=== PATIENT | female | born 1960 | race Caucasian/White ===

== ENCOUNTER 2016-08-06 20:44 | Emergency (ER) | payer MEDICAID ==
[~2016-08-06] VITALS: Ht 170.2 cm; Wt 90.7 kg
[~2016-08-06 20:44] MED LIST: ALBU18 IN; BACL10TA PO; BECL80AE9 IN; CLON1TAB3 PO; GABA300C8 PO; INVANZ IV; MORP1TAB13 PO; SERT-274 PO; TIOTCAP; [UNRECOGNIZED DRUG - CODE] IV
[2016-08-06] MEDS ORDERED: IPRATROPIUM BROM 0.5 MG/2.5ML INH SOL NEB ONE (22:00)
[2016-08-06] MEDS ORDERED: cefTRIAXone 1GM/50ML D5W 50 ML IV ONE (22:00)
[2016-08-06] MEDS ORDERED: ALBUTEROL SULF 2.5 MG/0.5ML(0.5%) NEB SOLN NEB ONE (22:00)
[2016-08-06] MEDS ORDERED: ONDANSETRON HCL 4 MG/2 ML VIAL IV ONE (22:15)
[2016-08-06] MEDS ORDERED: SODIUM CHLORIDE 0.9% 1,000 ML IV ONE (22:15)
[2016-08-06] MEDS ORDERED: HYDROmorphone HCL 2 MG/ML VL IV ONE (22:15)
[2016-08-06 23:06] LABS: Basophils # (auto) 0 uL; Basophils % (auto) 0.5 % (0.0-2.0); DEFINITIVE VIEW TRANSMISSION; Eosinophils # (auto) 0.4 uL; Hematocrit 40.2 % (36.0-46.0); Hemoglobin 12.7 g/dL (12.2-16.2); Lymphocytes # (auto) 2.4 uL; Lymphocytes % (auto) 29.5 % (10.0-50.0); Mean Corpuscular Hemoglobin 24.5 pg (28.0-32.0); Mean Corpuscular Hgb Conc. 31.6 g/dL (32.0-36.0); Mean Corpuscular Volume 77.6 fL (80.0-100.0); Mean Platelet Volume 8.5 fL (7.4-10.4); Monocytes # (auto) 0.5 uL; Monocytes % (auto) 6.2 % (0.0-12.0); Neutrophils # (auto) 4.8 uL; Neutrophils % (auto) 58.8 % (37.0-80.0); Platelet Count (auto) 339 10^3/uL (140-450); Red Cell Distribution Width 18.6 % (11.6-16.0); White Blood Cell 8.2 10^3/uL (4.4-10.8)
[2016-08-06 23:14] LABS: INR 1.14 (0.9-1.15); Partial Thromboplastin Time 31.7 sec (22.64-33.71); Prothrombin Time 11.7 sec (9.37-12.3)
[2016-08-06 23:18] LABS: Albumin 3.6 g/dL (3.4-5.0); BUN/Creatinine Ratio 32.6; Bilirubin, Total 0.8 mg/dL (0.2-1.0); Calcium 8.8 mg/dL (8.5-10.1); Magnesium 2.1 mg/dL (1.6-2.6); Potassium 3.6 mmol/L (3.5-5.1); Total Protein 7.3 g/dL (6.4-8.2)
[2016-08-06 23:53] LABS: Urine Bilirubin Negative (Negative); Urine Ca Oxalate Crystal MANY (None Seen); Urine Color Yellow (Yellow); Urine Glucose Normal (Normal); Urine Hyaline Cast MANY /lpf (0 - 2); Urine Ketone Negative (Negative); Urine Mucus FEW (None Seen); Urine RBC 92 /hpf (0 - 4); Urine Squamous Epithelial Cell FEW /hpf (<5); Urine Triple Phosphate Crystal MANY /hpf (None Seen); Urine Urobilinogen Normal (Negative); Urine pH 8.5 (5.0-8.0)
[2016-08-06 23:56] LABS: Urine Blood 1+ /uL (Negative); Urine Nitrite POSITIVE (Negative)
[2016-08-07] MEDS ORDERED: BACLOFEN 10 MG TAB PO ONE (01:30)
[2016-08-07] MEDS ORDERED: HYDROcodone-ACET 10/325MG TAB PO ONE (02:15)
[2016-08-07 02:20] VITALS: BP 108/74
[2016-08-07] MEDS ORDERED: methylPREDNISolone SOD SUCC 125 MG/2 ML VL IV ONE (03:00)
[2016-08-07] MEDS ORDERED: methylPREDNISolone SOD SUCC 125 MG/2 ML VL ONE (03:05)
== END 2016-08-07 03:12 | disposition home or self-care (01) ==
LOC: EDBD 20:44 → ER 20:48
DX: S39.012A Strain of muscle, fascia and tendon of lower back, initial encounter (principal); J44.1 Chronic obstructive pulmonary disease with (acute) exacerbation; M54.9 Dorsalgia, unspecified; N39.0 Urinary tract infection, site not specified; I10 Essential (primary) hypertension; F17.210 Nicotine dependence, cigarettes, uncomplicated; F12.10 Cannabis abuse, uncomplicated; Z90.49 Acquired absence of other specified parts of digestive tract; Z90.89 Acquired absence of other organs
CPT/HCPCS: 36415; 71010; 80053; 81001; 83735; 84484; 85025; 85379; 85610; 85730; 93005; 94640; 94761; 96365; 96375; 99285; J0696; J1170; J2405; J2930; J7030

== ENCOUNTER 2016-08-13 13:27 | Emergency (ER) | payer MEDICAID ==
[~2016-08-13] VITALS: Ht 170.2 cm; Wt 79.4 kg
[2016-08-13 14:33] LABS: Basophils # (auto) 0 uL; Basophils % (auto) 0.4 % (0.0-2.0); DEFINITIVE VIEW TRANSMISSION; Eosinophils # (auto) 0.2 uL; Eosinophils % (auto) 1.8 % (0.0-7.0); Hematocrit 36.8 % (36.0-46.0); Hemoglobin 11.7 g/dL (12.2-16.2); Lymphocytes % (auto) 30.6 % (10.0-50.0); Mean Corpuscular Hemoglobin 24.4 pg (28.0-32.0); Mean Corpuscular Hgb Conc. 31.7 g/dL (32.0-36.0); Mean Corpuscular Volume 77.1 fL (80.0-100.0); Mean Platelet Volume 8.1 fL (7.4-10.4); Monocytes # (auto) 0.8 uL; Monocytes % (auto) 7.8 % (0.0-12.0); Neutrophils # (auto) 5.7 uL; Neutrophils % (auto) 59.4 % (37.0-80.0); Platelet Count (auto) 292 10^3/uL (140-450); Red Cell Distribution Width 18.1 % (11.6-16.0); White Blood Cell 9.7 10^3/uL (4.4-10.8)
[2016-08-13] MEDS ORDERED: SODIUM CHLORIDE 0.9% 1,000 ML IV ONE (14:55)
[2016-08-13 15:13] LABS: Albumin 3.4 g/dL (3.4-5.0); Alkaline Phosphatase 107 U/L (45-117); Anion Gap 10 (5-15); Aspartate Aminotransferase 11 U/L (15-37); BUN/Creatinine Ratio 27.3; Bilirubin, Total 0.4 mg/dL (0.2-1.0); Blood Urea Nitrogen 12 mg/dL (7-18); Calcium 8.6 mg/dL (8.5-10.1); Carbon Dioxide 26 mmol/L (21-32); Chloride 104 mmol/L (98-107); GFR African American 191 mL/min; GFR Non-African American 158 mL/min; Glucose 87 mg/dL (74-106); Magnesium 2.1 mg/dL (1.6-2.6); Potassium 3.3 mmol/L (3.5-5.1); Sodium 140 mmol/L (136-145); Total Protein 6.8 g/dL (6.4-8.2)
[2016-08-13 15:38] LABS: Urine Bilirubin Negative (Negative); Urine Blood TRACE /uL (Negative); Urine Color Yellow (Yellow); Urine Glucose Normal (Normal); Urine Ketone Negative (Negative); Urine Mucus FEW (None Seen); Urine Nitrite Negative (Negative); Urine RBC 53 /hpf (0 - 4); Urine Squamous Epithelial Cell FEW /hpf (<5); Urine Urobilinogen Normal (Negative); Urine WBC Clumps PRESENT /hpf (None Seen)
[2016-08-13 16:11] VITALS: BP 135/96
[2016-08-13] MEDS ORDERED: CIPROFLOXACIN 400MG/200ML 200 ML IV ONE (16:15)
[2016-08-13] MEDS ORDERED: POTASSIUM CHL 10% (20 MEQ/15ML) ORAL SOLN PO ONE (16:15)
== END 2016-08-13 18:17 | disposition home or self-care (01) ==
LOC: ER 13:27 → EDBD 13:27 → ER 18:17
DX: N39.0 Urinary tract infection, site not specified (principal); R07.89 Other chest pain; J44.9 Chronic obstructive pulmonary disease, unspecified; I10 Essential (primary) hypertension; F17.210 Nicotine dependence, cigarettes, uncomplicated; F12.10 Cannabis abuse, uncomplicated; Z90.49 Acquired absence of other specified parts of digestive tract; Z90.89 Acquired absence of other organs; Z88.6 Allergy status to analgesic agent
CPT/HCPCS: 36415; 71010; 80053; 81001; 83605; 83735; 84484; 85025; 87040; 94761; 96361; 96365; 99285; J0744; J7030

== ENCOUNTER 2016-10-13 21:40 | Emergency (ER) | payer MEDICAID ==
[~2016-10-13] VITALS: Ht 165.1 cm; Wt 72.6 kg
[2016-10-13] MEDS ORDERED: ACETAMINOPHEN 325 MG TAB PO ONE (22:30)
[2016-10-14 01:17] LABS: Urine Bilirubin Negative (Negative); Urine Blood Negative /uL (Negative); Urine Color Yellow (Yellow); Urine Glucose Normal (Normal); Urine Hyaline Cast FEW /lpf (0 - 2); Urine Ketone Negative (Negative); Urine Mucus FEW (None Seen); Urine RBC 1 /hpf (0 - 4); Urine Urobilinogen Normal (Negative); Urine pH 5.5 (5.0-8.0)
[2016-10-14 01:25] VITALS: BP 116/70
[2016-10-14 01:29] LABS: Urine Nitrite POSITIVE (Negative)
[2016-10-14] MEDS ORDERED: ACETAMINOPHEN 325 MG TAB PO ONE (01:30)
== END 2016-10-14 02:57 | disposition home or self-care (01) ==
LOC: ER 21:40
DX: S42.301A Unspecified fracture of shaft of humerus, right arm, initial encounter for closed fracture (principal); J44.9 Chronic obstructive pulmonary disease, unspecified; I10 Essential (primary) hypertension; R51 Headache; F17.210 Nicotine dependence, cigarettes, uncomplicated; F12.10 Cannabis abuse, uncomplicated; W20.8XXA Other cause of strike by thrown, projected or falling object, initial encounter; Y93.89 Activity, other specified; Y99.8 Other external cause status; Y92.89 Other specified places as the place of occurrence of the external cause; Z87.440 Personal history of urinary (tract) infections; Z88.6 Allergy status to analgesic agent; Z79.899 Other long term (current) drug therapy
CPT/HCPCS: 70450; 72125; 73060; 80307; 81001

== ENCOUNTER 2016-11-01 18:28 | Emergency (ER) | payer MEDICAID ==
[~2016-11-01] VITALS: Ht 170.2 cm; Wt 81.6 kg
[2016-11-01 19:20] VITALS: BP 138/94
[2016-11-01 19:52] LABS: Basophils # (auto) 0 uL; Basophils % (auto) 0.4 % (0.0-2.0); DEFINITIVE VIEW TRANSMISSION; Eosinophils # (auto) 0.4 uL; Eosinophils % (auto) 4.7 % (0.0-7.0); Hematocrit 37.3 % (36.0-46.0); Lymphocytes # (auto) 2.4 uL; Lymphocytes % (auto) 31.6 % (10.0-50.0); Mean Corpuscular Hemoglobin 24.2 pg (28.0-32.0); Mean Corpuscular Hgb Conc. 32.1 g/dL (32.0-36.0); Mean Corpuscular Volume 75.3 fL (80.0-100.0); Mean Platelet Volume 8.2 fL (7.4-10.4); Monocytes # (auto) 0.5 uL; Monocytes % (auto) 6.4 % (0.0-12.0); Neutrophils # (auto) 4.3 uL; Neutrophils % (auto) 56.9 % (37.0-80.0); Platelet Count (auto) 363 10^3/uL (140-450); Red Cell Distribution Width 19.2 % (11.6-16.0); White Blood Cell 7.6 10^3/uL (4.4-10.8)
[2016-11-01 20:15] LABS: Albumin 3.4 g/dL (3.4-5.0); Alkaline Phosphatase 162 U/L (45-117); Anion Gap 9 (5-15); Aspartate Aminotransferase 10 U/L (15-37); BUN/Creatinine Ratio 31.6; Bilirubin, Total 0.4 mg/dL (0.2-1.0); Blood Urea Nitrogen 12 mg/dL (7-18); Calcium 9.3 mg/dL (8.5-10.1); Carbon Dioxide 28 mmol/L (21-32); Chloride 104 mmol/L (98-107); GFR African American 226 mL/min; GFR Non-African American 187 mL/min; Glucose 81 mg/dL (74-106); Magnesium 2.1 mg/dL (1.6-2.6); Potassium 4.2 mmol/L (3.5-5.1); Sodium 141 mmol/L (136-145)
[2016-11-01] MEDS ORDERED: LORazepam 2MG/ML-1ML VIAL IV ONE (20:15)
[2016-11-01] MEDS ORDERED: HYDROcodone-ACET 5/325MG TAB PO ONE (20:15)
[2016-11-01 20:19] LABS: Platelet Estimate Adequate
[2016-11-01 20:20] LABS: Anisocytosis Slight; Hypochromia Slight
[2016-11-01 20:21] LABS: Ovalocytes FEW
[2016-11-01] MEDS ORDERED: MORPHINE SULF INJ 2 MG/ML SYRINGE 1ML IV ONE (20:45)
== END 2016-11-01 22:09 | disposition home or self-care (01) ==
LOC: EDBD 18:28 → ER 18:34
DX: F41.9 Anxiety disorder, unspecified (principal); K08.89 Other specified disorders of teeth and supporting structures; F32.9 Major depressive disorder, single episode, unspecified; I10 Essential (primary) hypertension; J44.9 Chronic obstructive pulmonary disease, unspecified; F17.210 Nicotine dependence, cigarettes, uncomplicated; F12.10 Cannabis abuse, uncomplicated; Z87.440 Personal history of urinary (tract) infections
CPT/HCPCS: 36415; 80053; 83605; 83735; 84484; 85025; 96374; 96375; 99284; J2060; J2270

== ENCOUNTER 2016-11-12 18:43 | Inpatient (IN) | payer MEDICAID ==
[~2016-11-12] VITALS: Ht 162.6 cm; Wt 87.4 kg
[2016-11-12] MEDS ORDERED: IPRATROPIUM BROM 0.5 MG/2.5ML INH SOL NEB ONE (20:15)
[2016-11-12] MEDS ORDERED: ALBUTEROL SULF 2.5 MG/0.5ML(0.5%) NEB SOLN NEB ONE (20:15)
[2016-11-12 20:54] LABS: Basophils # (auto) 0 uL; Basophils % (auto) 0.4 % (0.0-2.0); DEFINITIVE VIEW TRANSMISSION; Eosinophils # (auto) 0.1 uL; Eosinophils % (auto) 1.8 % (0.0-7.0); Hematocrit 35.2 % (36.0-46.0); Hemoglobin 11.4 g/dL (12.2-16.2); Lymphocytes # (auto) 1.9 uL; Lymphocytes % (auto) 26.9 % (10.0-50.0); Mean Corpuscular Hemoglobin 24.4 pg (28.0-32.0); Mean Corpuscular Hgb Conc. 32.5 g/dL (32.0-36.0); Mean Platelet Volume 7.9 fL (7.4-10.4); Monocytes # (auto) 0.5 uL; Monocytes % (auto) 7.6 % (0.0-12.0); Neutrophils # (auto) 4.4 uL; Neutrophils % (auto) 63.3 % (37.0-80.0); Platelet Count (auto) 269 10^3/uL (140-450); Red Cell Distribution Width 18.4 % (11.6-16.0)
[2016-11-12 21:12] LABS: Partial Thromboplastin Time 29.4 sec (22.64-33.71); Prothrombin Time 10.9 sec (9.37-12.3)
[2016-11-12 21:17] LABS: Albumin 3.3 g/dL (3.4-5.0); Alkaline Phosphatase 127 U/L (45-117); Anion Gap 9 (5-15); Aspartate Aminotransferase 7 U/L (15-37); BUN/Creatinine Ratio 33.3; Bilirubin, Total 0.4 mg/dL (0.2-1.0); Blood Urea Nitrogen 11 mg/dL (7-18); Calcium 8.3 mg/dL (8.5-10.1); Carbon Dioxide 25 mmol/L (21-32); Chloride 107 mmol/L (98-107); GFR African American 266 mL/min; GFR Non-African American 220 mL/min; Glucose 102 mg/dL (74-106); Sodium 141 mmol/L (136-145)
[2016-11-12 21:21] LABS: B-Type Natriuretic Peptide 59.17 pg/mL (0-100)
[2016-11-12 21:26] LABS: Temperature: 23.5 C (20.0-25.0)
[2016-11-12 21:29] LABS: Potassium 2.9 mmol/L (3.5-5.1)
[2016-11-12] MEDS ORDERED: POTASSIUM CHL 10% (20 MEQ/15ML) ORAL SOLN PO ONE (22:00)
[2016-11-12] MEDS ORDERED: cefTRIAXone 1GM/50ML D5W 50 ML IV ONE (22:00)
[2016-11-12] MEDS ORDERED: ONDANSETRON HCL 4 MG/2 ML VIAL IV ONE (22:00)
[2016-11-12] MEDS ORDERED: HYDROmorphone HCL 2 MG/ML VL IV ONE (22:00)
[2016-11-12] MEDS ORDERED: SODIUM CHLORIDE 0.9% 250 ML IV ONE (22:00)
[2016-11-13] MEDS ORDERED: HYDROmorphone HCL 2 MG/ML VL IV ONE (01:15)
[2016-11-13] MEDS ORDERED: ONDANSETRON HCL 4 MG/2 ML VIAL IV ONE (01:15)
[2016-11-13] MEDS ORDERED: IOHEXOL 300 MG/ML 100ML BOTTLE IJ ONE (02:59)
[2016-11-13 07:35] LABS: Urine Bilirubin Negative (Negative); Urine Blood TRACE /uL (Negative); Urine Color Yellow (Yellow); Urine Glucose Normal (Normal); Urine Ketone Negative (Negative); Urine Mucus FEW (None Seen); Urine RBC 2 /hpf (0 - 4); Urine Urobilinogen Normal (Negative); Urine pH 5.5 (5.0-8.0)
[2016-11-13 07:36] LABS: Urine Nitrite POSITIVE (Negative)
[2016-11-13] MEDS ORDERED: ACETAMINOPHEN 500 MG TAB PO PRN (09:15)
[2016-11-13] MEDS ORDERED: MORPHINE SULF INJ 2 MG/ML SYRINGE 1ML IV PRN ×2 (09:15)
[2016-11-13] MEDS ORDERED: NITROGLYCERIN 0.4 MG SL TAB SL PRN (09:15)
[2016-11-13] MEDS ORDERED: ALBUTEROL SULF 2.5 MG/0.5ML(0.5%) NEB SOLN NEB PRN (09:15)
[2016-11-13] MEDS ORDERED: LORazepam 0.5 MG TAB PO PRN (09:15)
[2016-11-13] MEDS ORDERED: BACLOFEN 10 MG TAB PO PRN (09:15)
[2016-11-13] MEDS ORDERED: LACTULOSE 20Gm/30ML SOLN PO PRN (09:15)
[2016-11-13] MEDS ORDERED: HYDROcodone-ACET 5/325MG TAB PO PRN (09:15)
[2016-11-13] MEDS ORDERED: ERTAPENEM SOD 1 GM INJ VIAL IV SCH (10:00)
[2016-11-13] MEDS ORDERED: PATIENTS OWN MEDICATION (Tiotropium Bromide Monohydrate (Spiriva Handihaler) 1 CAP) SCH (10:00)
[2016-11-13] MEDS ORDERED: BECLOMETHASONE DIPROPIONATE IN SCH (10:00)
[2016-11-13] MEDS ORDERED: CLONAZEPAM 1 MG PO SCH (10:00)
[2016-11-13] MEDS: ENOXAPARIN SOD 40 MG/0.4 ML SYRINGE SC SCH (10:30)
[2016-11-13] MEDS: clonazePAM 0.5 MG TAB PO SCH (10:30)
[2016-11-13] MEDS: SERTRALINE HCL 50 MG TAB PO SCH (10:30)
[2016-11-13] MEDS: SOD CHL 0.9%/ KCL 40MEQ 1,000 ML IV SCH ×2 (10:36→22:00)
[2016-11-13] MEDS ORDERED: LINEZOLID 600 MG/300 ML IV BAG IV SCH (10:46)
[2016-11-13] MEDS: LINEZOLID 600MG/300ML 300 ML IV SCH ×2 (11:00→22:02)
[2016-11-13] MEDS: IPRATROPIUM BROM 0.5 MG/2.5ML INH SOL NEB SCH ×2 (11:52→18:29)
[2016-11-13] MEDS: ALBUTEROL SULF 2.5 MG/0.5ML(0.5%) NEB SOLN NEB SCH ×2 (11:52→18:29)
[2016-11-13] MEDS: BUDESONIDE (INHALATION) 0.5 MG/2 ML NEB NEB SCH ×2 (11:52→18:29)
[2016-11-13] MEDS: ERTAPENEM 1GM IN NS 50 ML IV SCH (12:35)
[2016-11-13] MEDS: HYDROmorphone HCL 2 MG/ML VL IV PRN ×3 (13:40→23:07)
[2016-11-13 16:45] VITALS: BP 100/54
[2016-11-13 20:23] VITALS: BP 153/89
[2016-11-13] MEDS: MORPHINE SULF 30 mg ER tab PO SCH (22:00)
[2016-11-13] MEDS: GABAPENTIN 300 MG CAP PO SCH (22:02)
[2016-11-14] MEDS: IPRATROPIUM BROM 0.5 MG/2.5ML INH SOL NEB SCH ×4 (00:18→19:43)
[2016-11-14] MEDS: ALBUTEROL SULF 2.5 MG/0.5ML(0.5%) NEB SOLN NEB SCH ×4 (00:18→19:43)
[2016-11-14 03:15] VITALS: BP 153/89
[2016-11-14] MEDS: HYDROmorphone HCL 2 MG/ML VL IV PRN ×5 (03:27→22:33)
[2016-11-14 05:21] VITALS: BP 103/70
[2016-11-14] MEDS: SOD CHL 0.9%/ KCL 40MEQ 1,000 ML IV SCH ×2 (06:00→15:28)
[2016-11-14] MEDS: MORPHINE SULF 30 mg ER tab PO SCH ×2 (06:01→21:56)
[2016-11-14] MEDS: diphenhdrAMINE HCL 25 MG CAP PO PRN (06:02)
[2016-11-14] MEDS: BUDESONIDE (INHALATION) 0.5 MG/2 ML NEB NEB SCH ×2 (06:11→19:43)
[2016-11-14 07:00] LABS: Albumin 2.8 g/dL (3.4-5.0); BUN/Creatinine Ratio 31.8; Bilirubin, Total 0.4 mg/dL (0.2-1.0); Calcium 8.1 mg/dL (8.5-10.1); Potassium 4.4 mmol/L (3.5-5.1); Total Protein 6.2 g/dL (6.4-8.2)
[2016-11-14 08:00] VITALS: BP 150/87
[2016-11-14 08:38] VITALS: BP 150/87
[2016-11-14] MEDS: ERTAPENEM 1GM IN NS 50 ML IV SCH (10:00)
[2016-11-14] MEDS: ENOXAPARIN SOD 40 MG/0.4 ML SYRINGE SC SCH (10:33)
[2016-11-14] MEDS: clonazePAM 0.5 MG TAB PO SCH (10:33)
[2016-11-14] MEDS: SERTRALINE HCL 50 MG TAB PO SCH (10:33)
[2016-11-14] MEDS: LINEZOLID 600MG/300ML 300 ML IV SCH (10:33)
[2016-11-14 13:31] VITALS: BP 122/79
[2016-11-14 17:23] VITALS: BP 166/78
[2016-11-14] MEDS: SULFAMETHOX W/TRIMETH(800/160MG) DS TAB PO SCH (21:56)
[2016-11-14] MEDS: GABAPENTIN 300 MG CAP PO SCH (21:56)
[2016-11-15] VITALS (8 sets, daily range): BP systolic 92–168; BP diastolic 42–97
[2016-11-15] MEDS: IPRATROPIUM BROM 0.5 MG/2.5ML INH SOL NEB SCH ×4 (00:17→18:05)
[2016-11-15] MEDS: ALBUTEROL SULF 2.5 MG/0.5ML(0.5%) NEB SOLN NEB SCH ×4 (00:17→18:05)
[2016-11-15] MEDS: HYDROmorphone HCL 2 MG/ML VL IV PRN ×5 (02:30→20:22)
[2016-11-15] MEDS: SOD CHL 0.9%/ KCL 40MEQ 1,000 ML IV SCH ×3 (02:30→15:36)
[2016-11-15] MEDS: BUDESONIDE (INHALATION) 0.5 MG/2 ML NEB NEB SCH ×2 (06:08→18:05)
[2016-11-15] MEDS: MORPHINE SULF 30 mg ER tab PO SCH ×2 (09:03→21:49)
[2016-11-15] MEDS: PROMETHAZINE HCL 25 MG/ML 1ML IV PRN (09:03)
[2016-11-15] MEDS: SERTRALINE HCL 50 MG TAB PO SCH (09:03)
[2016-11-15] MEDS: diphenhdrAMINE HCL 25 MG CAP PO PRN (09:03)
[2016-11-15] MEDS: SULFAMETHOX W/TRIMETH(800/160MG) DS TAB PO SCH (09:03)
[2016-11-15] MEDS: clonazePAM 0.5 MG TAB PO SCH (09:03)
[2016-11-15] MEDS: ENOXAPARIN SOD 40 MG/0.4 ML SYRINGE SC SCH (09:04)
[2016-11-15] MEDS: ERTAPENEM 1GM IN NS 50 ML IV SCH (20:21)
[2016-11-15] MEDS: TEMAZEPAM 15 MG CAP PO PRN (21:48)
[2016-11-15] MEDS: GABAPENTIN 300 MG CAP PO SCH (21:49)
[2016-11-16] MEDS: PROMETHAZINE HCL 25 MG/ML 1ML IV PRN ×2 (00:28→04:24)
[2016-11-16] MEDS: HYDROmorphone HCL 2 MG/ML VL IV PRN ×6 (00:28→21:46)
[2016-11-16] MEDS: SOD CHL 0.9%/ KCL 40MEQ 1,000 ML IV SCH ×2 (04:28→17:35)
[2016-11-16 05:36] VITALS: BP 113/65
[2016-11-16] MEDS: IPRATROPIUM BROM 0.5 MG/2.5ML INH SOL NEB SCH ×4 (07:10→19:41)
[2016-11-16] MEDS: ALBUTEROL SULF 2.5 MG/0.5ML(0.5%) NEB SOLN NEB SCH ×4 (07:10→19:41)
[2016-11-16] MEDS: BUDESONIDE (INHALATION) 0.5 MG/2 ML NEB NEB SCH ×2 (07:10→19:42)
[2016-11-16 08:00] VITALS: BP 105/64
[2016-11-16] MEDS: MORPHINE SULF 30 mg ER tab PO SCH ×2 (08:48→21:46)
[2016-11-16] MEDS: SERTRALINE HCL 50 MG TAB PO SCH (08:49)
[2016-11-16] MEDS: clonazePAM 0.5 MG TAB PO SCH (08:50)
[2016-11-16] MEDS: ENOXAPARIN SOD 40 MG/0.4 ML SYRINGE SC SCH (08:50)
[2016-11-16 08:55] VITALS: BP 105/64
[2016-11-16 13:00] VITALS: BP 103/61
[2016-11-16 16:42] VITALS: BP 147/80
[2016-11-16] MEDS: diphenhdrAMINE HCL 25 MG CAP PO PRN (21:46)
[2016-11-16] MEDS: TEMAZEPAM 15 MG CAP PO PRN (21:46)
[2016-11-16] MEDS: GABAPENTIN 300 MG CAP PO SCH (21:46)
[2016-11-16] MEDS: ERTAPENEM 1GM IN NS 50 ML IV SCH (21:47)
[2016-11-16 21:58] VITALS: BP 107/51
[2016-11-17] MEDS: HYDROmorphone HCL 2 MG/ML VL IV PRN ×5 (01:44→18:33)
[2016-11-17] MEDS: PROMETHAZINE HCL 25 MG/ML 1ML IV PRN ×4 (01:44→18:33)
[2016-11-17 03:01] VITALS: BP 147/80
[2016-11-17 04:43] VITALS: BP 109/61
[2016-11-17] MEDS: SOD CHL 0.9%/ KCL 40MEQ 1,000 ML IV SCH ×2 (05:38→13:15)
[2016-11-17] MEDS: IPRATROPIUM BROM 0.5 MG/2.5ML INH SOL NEB SCH ×4 (06:01→18:53)
[2016-11-17] MEDS: ALBUTEROL SULF 2.5 MG/0.5ML(0.5%) NEB SOLN NEB SCH ×4 (06:01→18:54)
[2016-11-17] MEDS: BUDESONIDE (INHALATION) 0.5 MG/2 ML NEB NEB SCH ×2 (06:02→18:54)
[2016-11-17 09:00] VITALS: BP 87/57
[2016-11-17] MEDS ORDERED: ASCORBIC ACID 500 MG TAB PO SCH (10:00)
[2016-11-17] MEDS ORDERED: MULTIPLE VITAMINS W/ MINERALS TAB PO SCH (10:00)
[2016-11-17] MEDS: PRO-STAT 64 30ML PO SCH ×2 (10:00→18:00)
[2016-11-17] MEDS: ENOXAPARIN SOD 40 MG/0.4 ML SYRINGE SC SCH (10:01)
[2016-11-17] MEDS: SERTRALINE HCL 50 MG TAB PO SCH (10:02)
[2016-11-17] MEDS: clonazePAM 0.5 MG TAB PO SCH (10:49)
[2016-11-17] MEDS: MORPHINE SULF 30 mg ER tab PO SCH (10:49)
[2016-11-17 13:00] VITALS: BP 88/52
[2016-11-17 17:00] VITALS: BP 84/57
[2016-11-17] MEDS ORDERED: ERTAPENEM 1GM IN NS 50 ML IV SCH (18:00)
== END 2016-11-17 21:30 | disposition home health service (06) | DRG 140 ==
LOC: EDBD 18:43 → ER 18:52 → TELE 18:53 → TELE-CENTR 11-13 11:14
PROVIDERS: ADMIT Internal Medicine; ATTEND Internal Medicine Pulmonary Disease
PROC: 02HV33Z Insertion of Infusion Device into Superior Vena Cava, Percutaneous Approach (ICD-10-PCS; principal; 2016-11-13)
DX: J44.0 Chronic obstructive pulmonary disease with (acute) lower respiratory infection (principal); I27.2 Other secondary pulmonary hypertension; L89.154 Pressure ulcer of sacral region, stage 4; E44.0 Moderate protein-calorie malnutrition; G82.20 Paraplegia, unspecified; F11.20 Opioid dependence, uncomplicated; N39.0 Urinary tract infection, site not specified; L89.323 Pressure ulcer of left buttock, stage 3; L89.314 Pressure ulcer of right buttock, stage 4; S42.291A Other displaced fracture of upper end of right humerus, initial encounter for closed fracture; J44.1 Chronic obstructive pulmonary disease with (acute) exacerbation; E87.6 Hypokalemia; E04.1 Nontoxic single thyroid nodule; G89.4 Chronic pain syndrome; F41.9 Anxiety disorder, unspecified; Z16.12 Extended spectrum beta lactamase (ESBL) resistance; X58.XXXA Exposure to other specified factors, initial encounter; E66.9 Obesity, unspecified; B96.20 Unspecified Escherichia coli [E. coli] as the cause of diseases classified elsewhere; F32.9 Major depressive disorder, single episode, unspecified; E11.9 Type 2 diabetes mellitus without complications; F17.210 Nicotine dependence, cigarettes, uncomplicated; I10 Essential (primary) hypertension; J20.9 Acute bronchitis, unspecified; L89.899 Pressure ulcer of other site, unspecified stage; Z82.5 Family history of asthma and other chronic lower respiratory diseases; Z80.0 Family history of malignant neoplasm of digestive organs; Z82.49 Family history of ischemic heart disease and other diseases of the circulatory system; Z82.61 Family history of arthritis; Z83.3 Family history of diabetes mellitus; Z93.3 Colostomy status; Z84.89 Family history of other specified conditions; Z90.49 Acquired absence of other specified parts of digestive tract; Z90.89 Acquired absence of other organs; Z80.3 Family history of malignant neoplasm of breast; Z80.1 Family history of malignant neoplasm of trachea, bronchus and lung; Z80.41 Family history of malignant neoplasm of ovary; Z84.1 Family history of disorders of kidney and ureter; Z81.8 Family history of other mental and behavioral disorders; Z74.01 Bed confinement status; Y93.89 Activity, other specified; Y92.89 Other specified places as the place of occurrence of the external cause; Y99.8 Other external cause status; Z68.33 Body mass index [BMI] 33.0-33.9, adult
CPT/HCPCS: 36415; 71010; 71260; 76536; 80053; 81001; 83735; 83880; 84484; 85025; 85610; 85730; 87081; 87086; 87088; 87186; 93005; 94640; 96365; 96375; 96376; 97001; 97110; J0696; J1335; J2405

== ENCOUNTER 2016-11-18 20:45 | Emergency (ER) | payer MEDICAID ==
[~2016-11-18] VITALS: Ht 167.6 cm; Wt 81.6 kg
[2016-11-18] MEDS ORDERED: LORazepam 2MG/ML-1ML VIAL ONE (21:46)
[2016-11-18] MEDS ORDERED: LORazepam 2MG/ML-1ML VIAL IV ONE (22:00)
[2016-11-18] MEDS ORDERED: IPRATROPIUM BROM 0.5 MG/2.5ML INH SOL NEB ONE (22:00)
[2016-11-18] MEDS ORDERED: ALBUTEROL SULF 2.5 MG/0.5ML(0.5%) NEB SOLN NEB ONE (22:00)
[2016-11-18 22:17] LABS: Basophils # (auto) 0.1 uL; Basophils % (auto) 1.1 % (0.0-2.0); DEFINITIVE VIEW TRANSMISSION; Eosinophils # (auto) 0 uL; Eosinophils % (auto) 0.4 % (0.0-7.0); Hematocrit 43.9 % (36.0-46.0); Hemoglobin 14.5 g/dL (12.2-16.2); Lymphocytes # (auto) 1.5 uL; Mean Corpuscular Hemoglobin 24.6 pg (28.0-32.0); Mean Corpuscular Hgb Conc. 32.9 g/dL (32.0-36.0); Mean Corpuscular Volume 74.6 fL (80.0-100.0); Monocytes # (auto) 0.4 uL; Monocytes % (auto) 3.5 % (0.0-12.0); Neutrophils # (auto) 9.8 uL; Platelet Count (auto) 451 10^3/uL (140-450); Red Cell Distribution Width 18.8 % (11.6-16.0); White Blood Cell 11.9 10^3/uL (4.4-10.8)
[2016-11-18 22:37] LABS: Albumin 3.5 g/dL (3.4-5.0); Anion Gap 15 (5-15); Aspartate Aminotransferase 15 U/L (15-37); BUN/Creatinine Ratio 32.1; Blood Urea Nitrogen 17 mg/dL (7-18); Calcium 9.1 mg/dL (8.5-10.1); Carbon Dioxide 17 mmol/L (21-32); Chloride 107 mmol/L (98-107); GFR African American 154 mL/min; GFR Non-African American 127 mL/min; Glucose 103 mg/dL (74-106); Potassium 3.8 mmol/L (3.5-5.1); Sodium 139 mmol/L (136-145)
[2016-11-18 22:41] LABS: Alkaline Phosphatase 227 U/L (45-117); Bilirubin, Total 0.5 mg/dL (0.2-1.0); Total Protein 7.9 g/dL (6.4-8.2)
[2016-11-18] MEDS ORDERED: ONDANSETRON HCL 4 MG/2 ML VIAL IV ONE (23:45)
[2016-11-18] MEDS ORDERED: VANCOMYCIN 1GM/250ML D5W 250 ML IV ONE (23:45)
[2016-11-18] MEDS ORDERED: HYDROmorphone HCL 2 MG/ML VL IV ONE (23:45)
[2016-11-19] MEDS ORDERED: LORazepam 2MG/ML-1ML VIAL IV ONE (04:30)
[2016-11-19 08:40] VITALS: BP 137/80
== END 2016-11-19 10:13 | disposition home or self-care (01) ==
LOC: ER 20:55
DX: R41.82 Altered mental status, unspecified (principal); F41.9 Anxiety disorder, unspecified; F32.9 Major depressive disorder, single episode, unspecified; R45.1 Restlessness and agitation; D72.829 Elevated white blood cell count, unspecified; F17.210 Nicotine dependence, cigarettes, uncomplicated; F12.10 Cannabis abuse, uncomplicated; I10 Essential (primary) hypertension; J44.9 Chronic obstructive pulmonary disease, unspecified; Z87.440 Personal history of urinary (tract) infections; G82.20 Paraplegia, unspecified; Z88.6 Allergy status to analgesic agent; Z79.899 Other long term (current) drug therapy
CPT/HCPCS: 36415; 71010; 80053; 80320; 82962; 85025; 94640; 96365; 96366; 96375; 96376; 99285; J1170; J2060; J2405; J3370

== ENCOUNTER 2016-12-26 06:34 | Inpatient (IN) | payer MEDICAID ==
[~2016-12-26] VITALS: Ht 165.1 cm; Wt 76.0 kg
[~2016-12-26 06:34] MED LIST changes: +GABA-497 PO; -GABA300C8 PO
[2016-12-26] MEDS ORDERED: SODIUM CHLORIDE 0.9% 1,000 ML IV ONE ×2 (07:24)
[2016-12-26] MEDS ORDERED: ALBUTEROL SULF 2.5 MG/0.5ML(0.5%) NEB SOLN NEB ONE (07:30)
[2016-12-26] MEDS ORDERED: IPRATROPIUM BROM 0.5 MG/2.5ML INH SOL NEB ONE (07:30)
[2016-12-26] MEDS ORDERED: cefTRIAXone 1GM/50ML D5W 50 ML IV ONE (07:30)
[2016-12-26] MEDS ORDERED: KETOROLAC TROMETH 30 MG/ML 1ML VIAL IV ONE (07:45)
[2016-12-26 08:16] LABS: Basophils # (auto) 0 uL; Basophils % (auto) 0.3 % (0.0-2.0); CONDITION Y; DEFINITIVE SEE PRINTOUT; Hemoglobin 11.7 g/dL (12.2-16.2); Lymphocytes # (auto) 0.7 uL; Mean Corpuscular Hemoglobin 24.1 pg (28.0-32.0); Mean Platelet Volume 8.5 fL (7.4-10.4); Monocytes # (auto) 0.4 uL
[2016-12-26 08:19] LABS: Eosinophils # (auto) 0.3 uL; Hematocrit 35.3 % (36.0-46.0); Lymphocytes % (auto) 8.4 % (10.0-50.0); Mean Corpuscular Hgb Conc. 33.1 g/dL (32.0-36.0); Mean Corpuscular Volume 72.8 fL (80.0-100.0); Monocytes % (auto) 4.8 % (0.0-12.0); Neutrophils # (auto) 7.1 uL; Neutrophils % (auto) 83.5 % (37.0-80.0); Platelet Count (auto) 290 10^3/uL (140-450); Red Cell Distribution Width 19.1 % (11.6-16.0); White Blood Cell 8.5 10^3/uL (4.4-10.8)
[2016-12-26 08:33] LABS: INR 1.08 (0.9-1.15); Partial Thromboplastin Time 29.8 sec (22.64-33.71); Prothrombin Time 11.8 sec (9.37-12.3)
[2016-12-26 08:51] LABS: Albumin 2.9 g/dL (3.4-5.0); Alkaline Phosphatase 86 U/L (45-117); Anion Gap 9 (5-15); Aspartate Aminotransferase 11 U/L (15-37); BUN/Creatinine Ratio 24.2; Bilirubin, Total 0.4 mg/dL (0.2-1.0); Blood Urea Nitrogen 8 mg/dL (7-18); Calcium 8.4 mg/dL (8.5-10.1); Carbon Dioxide 27 mmol/L (21-32); Chloride 105 mmol/L (98-107); GFR African American 266 mL/min; GFR Non-African American 220 mL/min; Glucose 102 mg/dL (74-106); Potassium 3.8 mmol/L (3.5-5.1); Sodium 141 mmol/L (136-145); Total Protein 6.5 g/dL (6.4-8.2)
[2016-12-26 08:56] LABS: B-Type Natriuretic Peptide 107.31 pg/mL (0-100)
[2016-12-26] MEDS ORDERED: methylPREDNISolone SOD SUCC 125 MG/2 ML VL IV ONE (09:00)
[2016-12-26 09:01] LABS: Temperature: 23.1 C (20.0-25.0)
[2016-12-26] MEDS ORDERED: HYDROmorphone HCL 2 MG/ML VL IV ONE (09:30)
[2016-12-26] MEDS ORDERED: VANCOMYCIN PER PHARMACY 0 MG IV SCH (09:30)
[2016-12-26] MEDS ORDERED: LORazepam 2MG/ML-1ML VIAL IV PRN (09:30)
[2016-12-26] MEDS ORDERED: ONDANSETRON HCL 4 MG/2 ML VIAL IV ONE (09:30)
[2016-12-26] MEDS ORDERED: BACLOFEN 10 MG TAB PO PRN (09:45)
[2016-12-26] MEDS ORDERED: DEXTROSE (50%) 50ML SYRG IV PRN (09:45)
[2016-12-26] MEDS ORDERED: clonazePAM 0.5 MG TAB PO PRN (09:45)
[2016-12-26 09:53] VITALS: BP 114/83
[2016-12-26] MEDS ORDERED: DOCUSATE SOD 100 MG CAP PO PRN (10:00)
[2016-12-26] MEDS ORDERED: ACETAMINOPHEN 325 MG TAB PO PRN (10:00)
[2016-12-26] MEDS ORDERED: PATIENTS OWN MEDICATION IN SCH ×4 (10:00)
[2016-12-26] MEDS ORDERED: HYDROcodone-ACET 5/325MG TAB PO PRN (10:00)
[2016-12-26] MEDS: MORPHINE SULF 30 mg ER tab PO SCH ×3 (10:00→22:25)
[2016-12-26] MEDS ORDERED: TEMAZEPAM 15 MG CAP PO PRN (10:00)
[2016-12-26] MEDS: MULTIPLE VITAMIN TAB PO SCH (10:12)
[2016-12-26] MEDS: SERTRALINE HCL 50 MG TAB PO SCH (10:12)
[2016-12-26] MEDS: ASCORBIC ACID 500 MG TAB PO SCH ×2 (10:12→22:25)
[2016-12-26] MEDS: FAMOTIDINE 20 MG TAB PO SCH ×2 (10:12→22:25)
[2016-12-26] MEDS: GABAPENTIN 300 MG CAP PO SCH ×2 (10:13→22:24)
[2016-12-26] MEDS: ZINC SULFATE 220 MG CAP PO SCH (10:13)
[2016-12-26] MEDS: ERTAPENEM SOD INJ 1 GM in SODIUM CHL 0.9% 50 ML IV SCH (11:00)
[2016-12-26] MEDS: InsuLIN REG 1unit/0.01ml Soln (100units/ml) SC SCH ×4 (11:30→22:30)
[2016-12-26] MEDS: ACCU-CHEK COMFORT CURVE STRIP VI SCH ×3 (11:37→22:25)
[2016-12-26] MEDS: IPRATROPIUM BROM 0.5 MG/2.5ML INH SOL NEB SCH ×2 (12:00→18:13)
[2016-12-26] MEDS: VANCOMYCIN 1GM/250ML D5W 250 ML IV SCH ×2 (12:15→23:37)
[2016-12-26] MEDS: Boost Glucose Control 8 Ounces PO SCH ×3 (12:17→22:24)
[2016-12-26] MEDS: BUDESONIDE (INHALATION) 0.5 MG/2 ML NEB NEB SCH ×2 (12:20→18:13)
[2016-12-26] MEDS: ALBUTEROL SULF 2.5 MG/0.5ML(0.5%) NEB SOLN NEB SCH ×2 (12:20→18:13)
[2016-12-26] MEDS: HYDROmorphone HCL 2 MG/ML VL IV PRN ×2 (13:36→19:37)
[2016-12-26] MEDS: SODIUM CHLOR 0.9% PF (SALINE LOCK) 10ML VIAL IV SCH ×2 (14:00→22:24)
[2016-12-26] MEDS ORDERED: LEVOFLOXACIN 500 MG TAB ONE (17:31)
[2016-12-26] MEDS ORDERED: diphenhdrAMINE HCL 25 MG CAP PO ONE (18:55)
[2016-12-26] MEDS ORDERED: diphenhdrAMINE HCL 25 MG CAP PO PRN (19:00)
[2016-12-26] MEDS: ONDANSETRON HCL 4 MG/2 ML VIAL IV PRN (19:37)
[2016-12-26 22:00] VITALS: BP 156/97
[2016-12-27] VITALS (7 sets, daily range): BP systolic 98–156; BP diastolic 52–97
[2016-12-27] MEDS: HYDROmorphone HCL 2 MG/ML VL IV PRN ×6 (00:03→20:34)
[2016-12-27] MEDS: SODIUM CHLOR 0.9% PF (SALINE LOCK) 10ML VIAL IV SCH ×3 (05:58→21:44)
[2016-12-27] MEDS: Boost Glucose Control 8 Ounces PO SCH ×4 (05:59→21:43)
[2016-12-27 06:28] LABS: Basophils # (auto) 0 uL; Basophils % (auto) 0.3 % (0.0-2.0); CONDITION Y; DEFINITIVE SEE PRINTOUT; Eosinophils # (auto) 0 uL; Eosinophils % (auto) 0.3 % (0.0-7.0); Hemoglobin 11.7 g/dL (12.2-16.2); Lymphocytes # (auto) 0.9 uL; Lymphocytes % (auto) 24.1 % (10.0-50.0); Mean Corpuscular Hemoglobin 23.9 pg (28.0-32.0); Mean Corpuscular Hgb Conc. 32.4 g/dL (32.0-36.0); Mean Corpuscular Volume 73.6 fL (80.0-100.0); Mean Platelet Volume 8.5 fL (7.4-10.4); Monocytes # (auto) 0.4 uL; Monocytes % (auto) 11.6 % (0.0-12.0); Neutrophils # (auto) 2.3 uL; Neutrophils % (auto) 63.7 % (37.0-80.0); Platelet Count (auto) 308 10^3/uL (140-450); Red Cell Distribution Width 18.9 % (11.6-16.0); White Blood Cell 3.6 10^3/uL (4.4-10.8)
[2016-12-27] MEDS: IPRATROPIUM BROM 0.5 MG/2.5ML INH SOL NEB SCH ×4 (06:28→19:30)
[2016-12-27] MEDS: ALBUTEROL SULF 2.5 MG/0.5ML(0.5%) NEB SOLN NEB SCH ×4 (06:28→19:30)
[2016-12-27] MEDS: InsuLIN REG 1unit/0.01ml Soln (100units/ml) SC SCH ×4 (06:39→21:43)
[2016-12-27] MEDS: ACCU-CHEK COMFORT CURVE STRIP VI SCH ×4 (06:39→21:43)
[2016-12-27 06:50] LABS: Albumin 2.8 g/dL (3.4-5.0); BUN/Creatinine Ratio 31.8; Calcium 8.3 mg/dL (8.5-10.1); Potassium 4.7 mmol/L (3.5-5.1)
[2016-12-27 06:53] LABS: Bilirubin, Total 0.2 mg/dL (0.2-1.0); Total Protein 6.7 g/dL (6.4-8.2)
[2016-12-27] MEDS ORDERED: cefTRIAXone 1GM/50ML D5W 50 ML IV SCH (09:00)
[2016-12-27] MEDS: ASCORBIC ACID 500 MG TAB PO SCH ×2 (10:00→21:44)
[2016-12-27] MEDS: ZINC SULFATE 220 MG CAP PO SCH (10:49)
[2016-12-27] MEDS: GABAPENTIN 300 MG CAP PO SCH ×2 (10:50→21:44)
[2016-12-27] MEDS: MULTIPLE VITAMIN TAB PO SCH (10:50)
[2016-12-27] MEDS: MORPHINE SULF 30 mg ER tab PO SCH ×2 (10:52→21:44)
[2016-12-27] MEDS: SERTRALINE HCL 50 MG TAB PO SCH (10:53)
[2016-12-27] MEDS: ERTAPENEM SOD INJ 1 GM in SODIUM CHL 0.9% 50 ML IV SCH (10:54)
[2016-12-27] MEDS: FAMOTIDINE 20 MG TAB PO SCH ×2 (10:54→21:44)
[2016-12-27] MEDS: BUDESONIDE (INHALATION) 0.5 MG/2 ML NEB NEB SCH ×2 (11:37→18:10)
[2016-12-27] MEDS: VANCOMYCIN 1GM/250ML D5W 250 ML IV SCH (12:46)
[2016-12-27] MEDS: metroNIDAZOLE 500 MG TAB PO SCH ×2 (18:07→21:44)
[2016-12-28] VITALS (7 sets, daily range): BP systolic 87–139; BP diastolic 58–110
[2016-12-28] MEDS: IPRATROPIUM BROM 0.5 MG/2.5ML INH SOL NEB SCH ×3 (00:24→19:01)
[2016-12-28] MEDS: ALBUTEROL SULF 2.5 MG/0.5ML(0.5%) NEB SOLN NEB SCH ×3 (00:24→19:01)
[2016-12-28] MEDS: VANCOMYCIN 1GM/250ML D5W 250 ML IV SCH ×2 (00:27→12:00)
[2016-12-28] MEDS: HYDROmorphone HCL 2 MG/ML VL IV PRN ×7 (00:49→23:48)
[2016-12-28 05:20] LABS: Basophils # (auto) 0 uL; Basophils % (auto) 0.7 % (0.0-2.0); CONDITION Y; DEFINITIVE SEE PRINTOUT; Eosinophils # (auto) 0.3 uL; Eosinophils % (auto) 4.3 % (0.0-7.0); Hematocrit 35.5 % (36.0-46.0); Hemoglobin 11.3 g/dL (12.2-16.2); Lymphocytes % (auto) 32.5 % (10.0-50.0); Mean Corpuscular Hemoglobin 23.6 pg (28.0-32.0); Mean Corpuscular Hgb Conc. 31.8 g/dL (32.0-36.0); Mean Corpuscular Volume 74.2 fL (80.0-100.0); Mean Platelet Volume 8.5 fL (7.4-10.4); Monocytes # (auto) 0.5 uL; Neutrophils # (auto) 3.3 uL; Neutrophils % (auto) 54.5 % (37.0-80.0); Platelet Count (auto) 333 10^3/uL (140-450); Red Cell Distribution Width 18.8 % (11.6-16.0); White Blood Cell 6.1 10^3/uL (4.4-10.8)
[2016-12-28] MEDS: InsuLIN REG 1unit/0.01ml Soln (100units/ml) SC SCH ×4 (05:33→21:09)
[2016-12-28] MEDS: Boost Glucose Control 8 Ounces PO SCH ×4 (05:33→21:09)
[2016-12-28] MEDS: ACCU-CHEK COMFORT CURVE STRIP VI SCH ×4 (05:33→21:10)
[2016-12-28] MEDS: SODIUM CHLOR 0.9% PF (SALINE LOCK) 10ML VIAL IV SCH ×3 (05:33→21:09)
[2016-12-28 05:43] LABS: BUN/Creatinine Ratio 46.7; Calcium 8.3 mg/dL (8.5-10.1); Magnesium 2.1 mg/dL (1.6-2.6); Potassium 4.8 mmol/L (3.5-5.1)
[2016-12-28] MEDS: metroNIDAZOLE 500 MG TAB PO SCH ×3 (05:46→21:17)
[2016-12-28 06:49] LABS: Urine Bilirubin Negative (Negative); Urine Blood Negative /uL (Negative); Urine Color Yellow (Yellow); Urine Glucose Normal (Normal); Urine Hyaline Cast FEW /lpf (0 - 2); Urine Ketone Negative (Negative); Urine Nitrite Negative (Negative); Urine RBC 3 /hpf (0 - 4); Urine Squamous Epithelial Cell FEW /hpf (<5); Urine Urobilinogen Normal (Negative); Urine pH 5.5 (5.0-8.0)
[2016-12-28] MEDS: MORPHINE SULF 30 mg ER tab PO SCH ×2 (10:00→21:16)
[2016-12-28] MEDS: ERTAPENEM SOD INJ 1 GM in SODIUM CHL 0.9% 50 ML IV SCH (10:58)
[2016-12-28] MEDS: ASCORBIC ACID 500 MG TAB PO SCH ×2 (10:59→21:16)
[2016-12-28] MEDS: GABAPENTIN 300 MG CAP PO SCH ×2 (10:59→21:16)
[2016-12-28] MEDS: FAMOTIDINE 20 MG TAB PO SCH ×2 (10:59→21:16)
[2016-12-28] MEDS: ZINC SULFATE 220 MG CAP PO SCH (10:59)
[2016-12-28] MEDS: SERTRALINE HCL 50 MG TAB PO SCH (10:59)
[2016-12-28] MEDS: MULTIPLE VITAMIN TAB PO SCH (11:00)
[2016-12-28] MEDS: BUDESONIDE (INHALATION) 0.5 MG/2 ML NEB NEB SCH (19:01)
[2016-12-29] MEDS: IPRATROPIUM BROM 0.5 MG/2.5ML INH SOL NEB SCH ×3 (00:32→12:09)
[2016-12-29] MEDS: ALBUTEROL SULF 2.5 MG/0.5ML(0.5%) NEB SOLN NEB SCH ×3 (00:32→12:08)
[2016-12-29] MEDS: HYDROmorphone HCL 2 MG/ML VL IV PRN ×5 (04:13→16:57)
[2016-12-29 05:00] VITALS: BP 146/84
[2016-12-29] MEDS: Boost Glucose Control 8 Ounces PO SCH ×2 (05:36→12:00)
[2016-12-29] MEDS: ACCU-CHEK COMFORT CURVE STRIP VI SCH ×3 (05:36→16:56)
[2016-12-29] MEDS: InsuLIN REG 1unit/0.01ml Soln (100units/ml) SC SCH ×3 (05:36→16:55)
[2016-12-29] MEDS: SODIUM CHLOR 0.9% PF (SALINE LOCK) 10ML VIAL IV SCH ×2 (05:39→14:20)
[2016-12-29] MEDS: metroNIDAZOLE 500 MG TAB PO SCH ×2 (05:39→14:00)
[2016-12-29] MEDS: BUDESONIDE (INHALATION) 0.5 MG/2 ML NEB NEB SCH (06:10)
[2016-12-29 08:46] VITALS: BP 146/84
[2016-12-29 08:53] VITALS: BP 122/94
[2016-12-29] MEDS: ERTAPENEM SOD INJ 1 GM in SODIUM CHL 0.9% 50 ML IV SCH (10:38)
[2016-12-29] MEDS: FAMOTIDINE 20 MG TAB PO SCH (10:39)
[2016-12-29] MEDS: ZINC SULFATE 220 MG CAP PO SCH (10:39)
[2016-12-29] MEDS: MORPHINE SULF 30 mg ER tab PO SCH (10:39)
[2016-12-29] MEDS: ASCORBIC ACID 500 MG TAB PO SCH (10:39)
[2016-12-29] MEDS: MULTIPLE VITAMIN TAB PO SCH (10:39)
[2016-12-29] MEDS: SERTRALINE HCL 50 MG TAB PO SCH (10:39)
[2016-12-29] MEDS: GABAPENTIN 300 MG CAP PO SCH (10:40)
[2016-12-29] MEDS: ONDANSETRON HCL 4 MG/2 ML VIAL IV PRN (11:18)
[2016-12-29] MEDS: VANCOMYCIN 1GM/250ML D5W 250 ML IV SCH ×2 (12:00)
[2016-12-29 13:00] VITALS: BP 131/54
== END 2016-12-29 17:35 | disposition home or self-care (01) | DRG 140 ==
LOC: EDBD 06:34 → ER 06:34 → OVERFLOW 06:35 → EAST 19:43
PROVIDERS: ADMIT Internal Medicine; ATTEND Internal Medicine
PROC: 05HY33Z Insertion of Infusion Device into Upper Vein, Percutaneous Approach (ICD-10-PCS; principal; 2016-12-26)
DX: J44.0 Chronic obstructive pulmonary disease with (acute) lower respiratory infection (principal); E43 Unspecified severe protein-calorie malnutrition; L89.94 Pressure ulcer of unspecified site, stage 4; J18.9 Pneumonia, unspecified organism; A04.7 Enterocolitis due to Clostridium difficile; I27.2 Other secondary pulmonary hypertension; L89.153 Pressure ulcer of sacral region, stage 3; G82.20 Paraplegia, unspecified; J20.9 Acute bronchitis, unspecified; R06.00 Dyspnea, unspecified; R07.89 Other chest pain; F32.9 Major depressive disorder, single episode, unspecified; Z80.0 Family history of malignant neoplasm of digestive organs; Z80.1 Family history of malignant neoplasm of trachea, bronchus and lung; I10 Essential (primary) hypertension; E11.9 Type 2 diabetes mellitus without complications; Z79.899 Other long term (current) drug therapy; Z80.3 Family history of malignant neoplasm of breast; Z80.8 Family history of malignant neoplasm of other organs or systems; Z82.49 Family history of ischemic heart disease and other diseases of the circulatory system; J45.909 Unspecified asthma, uncomplicated; F17.210 Nicotine dependence, cigarettes, uncomplicated; J44.1 Chronic obstructive pulmonary disease with (acute) exacerbation; Z80.41 Family history of malignant neoplasm of ovary; Z82.0 Family history of epilepsy and other diseases of the nervous system; Z82.3 Family history of stroke; Z82.5 Family history of asthma and other chronic lower respiratory diseases; Z82.62 Family history of osteoporosis; Z83.3 Family history of diabetes mellitus; F41.9 Anxiety disorder, unspecified; Z90.49 Acquired absence of other specified parts of digestive tract; Z80.9 Family history of malignant neoplasm, unspecified; Z82.61 Family history of arthritis
CPT/HCPCS: 36415; 71010; 80048; 80053; 80202; 81001; 82962; 83036; 83540; 83605; 83735; 83880; 84443; 84484; 85025; 85610; 85730; 87040; 87077; 87081; 87086; 87186; 87205; 87493; 93005; 94640; 96361; 96365; 96375; J0696; J1335; J1815; J1885; J2405

== ENCOUNTER 2017-01-19 09:05 | Emergency (ER) | payer MEDICAID ==
[~2017-01-19] VITALS: Ht 170.2 cm; Wt 81.6 kg
[~2017-01-19 09:05] MED LIST changes: -INVANZ IV; -[UNRECOGNIZED DRUG - CODE] IV
[2017-01-19] MEDS ORDERED: SODIUM CHLORIDE 0.9% 1,000 ML IV ONE ×2 (09:44)
[2017-01-19] MEDS ORDERED: ONDANSETRON HCL 4 MG/2 ML VIAL IV ONE ×2 (10:00→12:45)
[2017-01-19 10:59] LABS: Basophils # (auto) 0 uL; Basophils % (auto) 0.4 % (0.0-2.0); CONDITION Y; DEFINITIVE SEE PRINTOUT; Eosinophils # (auto) 0.1 uL; Eosinophils % (auto) 1.3 % (0.0-7.0); Hematocrit 40.5 % (36.0-46.0); Hemoglobin 13.1 g/dL (12.2-16.2); Lymphocytes # (auto) 0.8 uL; Lymphocytes % (auto) 8.2 % (10.0-50.0); Mean Corpuscular Hemoglobin 24.1 pg (28.0-32.0); Mean Corpuscular Hgb Conc. 32.4 g/dL (32.0-36.0); Mean Corpuscular Volume 74.6 fL (80.0-100.0); Mean Platelet Volume 8.8 fL (7.4-10.4); Monocytes # (auto) 0.4 uL; Neutrophils # (auto) 8.7 uL; Neutrophils % (auto) 86.1 % (37.0-80.0); Platelet Count (auto) 232 10^3/uL (140-450); White Blood Cell 10.1 10^3/uL (4.4-10.8)
[2017-01-19 11:06] LABS: Red Cell Distribution Width 21.1 % (11.6-16.0)
[2017-01-19 11:14] LABS: INR 0.92 (0.9-1.15); Partial Thromboplastin Time 29.2 sec (22.64-33.71)
[2017-01-19 11:23] LABS: Albumin 2.9 g/dL (3.4-5.0); Alkaline Phosphatase 93 U/L (45-117); Anion Gap 10 (5-15); Aspartate Aminotransferase 8 U/L (15-37); BUN/Creatinine Ratio 32.4; Bilirubin, Total 0.3 mg/dL (0.2-1.0); Blood Urea Nitrogen 12 mg/dL (7-18); Calcium 8.9 mg/dL (8.5-10.1); Carbon Dioxide 24 mmol/L (21-32); Chloride 110 mmol/L (98-107); GFR African American 233 mL/min; GFR Non-African American 193 mL/min; Glucose 111 mg/dL (74-106); Sodium 144 mmol/L (136-145)
[2017-01-19 11:26] LABS: B-Type Natriuretic Peptide 51.08 pg/mL (0-100)
[2017-01-19 11:27] LABS: Temperature: 23.1 C (20.0-25.0)
[2017-01-19 12:06] LABS: Anisocytosis Slight; Hypochromia Slight; Platelet Estimate Adequate
[2017-01-19] MEDS ORDERED: ASPirin 81 mg TAB PO ONE (12:15)
[2017-01-19] MEDS ORDERED: NITROGLYCERIN 0.4 MG SL TAB SL ONE (12:15)
[2017-01-19] MEDS ORDERED: ONDANSETRON HCL 4 MG/2 ML VIAL ONE (12:24)
[2017-01-19] MEDS ORDERED: KETOROLAC TROMETH 30 MG/ML 1ML VIAL IV ONE (12:45)
[2017-01-19 13:15] LABS: Urine Bilirubin Negative (Negative); Urine Color Yellow (Yellow); Urine Glucose Normal (Normal); Urine Ketone Negative (Negative); Urine Mucus FEW (None Seen); Urine RBC 43 /hpf (0 - 4); Urine Squamous Epithelial Cell FEW /hpf (<5); Urine Urobilinogen Normal (Negative); Urine WBC Clumps PRESENT /hpf (None Seen)
[2017-01-19 13:22] LABS: Urine Blood 2+ /uL (Negative); Urine Nitrite POSITIVE (Negative)
[2017-01-19] MEDS ORDERED: PROMETHAZINE HCL 25 MG/ML 1ML ONE (13:54)
[2017-01-19] MEDS ORDERED: PROMETHAZINE HCL 25 MG/ML 1ML IV ONE (14:00)
[2017-01-19] MEDS ORDERED: ONDANSETRON HCL 4 MG/2 ML VIAL IV PRN (18:30)
[2017-01-19 19:23] VITALS: BP 93/70
== END 2017-01-19 12:09 | disposition home or self-care (01) ==
LOC: EDBD 09:05 → ER 09:05
DX: R11.2 Nausea with vomiting, unspecified (principal); R19.7 Diarrhea, unspecified; R10.13 Epigastric pain; I10 Essential (primary) hypertension; J44.9 Chronic obstructive pulmonary disease, unspecified; F17.210 Nicotine dependence, cigarettes, uncomplicated; F12.10 Cannabis abuse, uncomplicated; R53.1 Weakness; E44.0 Moderate protein-calorie malnutrition; Z68.28 Body mass index [BMI] 28.0-28.9, adult; Z88.6 Allergy status to analgesic agent; Z79.899 Other long term (current) drug therapy; G82.20 Paraplegia, unspecified; Z90.49 Acquired absence of other specified parts of digestive tract
CPT/HCPCS: 36415; 71010; 80053; 81001; 83880; 84484; 85025; 85610; 85730; 93005; 96361; 96374; 96375; 96376; 99285; J1885; J2405; J2550; J7030

== ENCOUNTER 2017-03-26 23:09 | Emergency (ER) | payer MEDICAID ==
[~2017-03-26] VITALS: Ht 165.1 cm; Wt 81.6 kg
[2017-03-26] MEDS ORDERED: SODIUM CHLORIDE 0.9% 500 ML IV ONE (23:35)
[2017-03-27 00:32] LABS: Basophils # (auto) 0.1 uL; Eosinophils # (auto) 0.6 uL; Lymphocytes # (auto) 1.4 uL; Monocytes # (auto) 0.5 uL
[2017-03-27 00:34] LABS: Basophils % (auto) 0.8 % (0.0-2.0); Eosinophils % (auto) 6.6 % (0.0-7.0); Hemoglobin 11.7 g/dL (12.2-16.2); Lymphocytes % (auto) 15.9 % (10.0-50.0); Mean Corpuscular Hemoglobin 23.3 pg (28.0-32.0); Mean Corpuscular Hgb Conc. 32.4 g/dL (32.0-36.0); Mean Platelet Volume 7.5 fL (6.9-10.8); Monocytes % (auto) 5.7 % (0.0-12.0); Neutrophils # (auto) 6.4 uL; Platelet Count (auto) 378 10^3/uL (140-450); Red Cell Distribution Width 18.5 % (11.8-14.3)
[2017-03-27 00:45] LABS: Albumin 3.3 g/dL (3.4-5.0); BUN/Creatinine Ratio 22.2; Calcium 8.6 mg/dL (8.5-10.1); Potassium 3.2 mmol/L (3.5-5.1)
[2017-03-27 00:49] LABS: Bilirubin, Total 0.4 mg/dL (0.2-1.0); Total Protein 7.2 g/dL (6.4-8.2)
[2017-03-27] MEDS ORDERED: IPRATROPIUM BROM 0.5 MG/2.5ML INH SOL NEB ONE ×2 (01:00→02:30)
[2017-03-27] MEDS ORDERED: ALBUTEROL SULF 2.5 MG/0.5ML(0.5%) NEB SOLN NEB ONE ×2 (01:00→02:30)
[2017-03-27 05:30] VITALS: BP 92/50
== END 2017-03-27 12:17 | disposition home or self-care (01) ==
LOC: EDBD 23:09 → ER 23:24
DX: J44.1 Chronic obstructive pulmonary disease with (acute) exacerbation (principal); I10 Essential (primary) hypertension; G89.4 Chronic pain syndrome; L89.143 Pressure ulcer of left lower back, stage 3; L89.133 Pressure ulcer of right lower back, stage 3; F17.210 Nicotine dependence, cigarettes, uncomplicated; Z88.0 Allergy status to penicillin; Z79.899 Other long term (current) drug therapy; Z90.49 Acquired absence of other specified parts of digestive tract; Z88.6 Allergy status to analgesic agent
CPT/HCPCS: 36415; 51702; 80053; 85025; 94640; 94761; 96360; A4565

== ENCOUNTER 2017-04-07 16:03 | Inpatient (IN) | payer MEDICAID ==
[~2017-04-07] VITALS: Ht 167.6 cm; Wt 76.0 kg
[2017-04-07] MEDS ORDERED: SODIUM CHLORIDE 0.9% 1,000 ML IV ONE (16:23)
[2017-04-07] MEDS ORDERED: ALBUTEROL SULF 2.5 MG/0.5ML(0.5%) NEB SOLN HHN ONE (16:30)
[2017-04-07] MEDS ORDERED: IPRATROPIUM BROM 0.5 MG/2.5ML INH SOL HHN ONE (16:30)
[2017-04-07] MEDS ORDERED: LEVOFLOXACIN 500MG 100 ML IV ONE (16:30)
[2017-04-07] MEDS ORDERED: HYDROmorphone HCL 2 MG/ML VL IV ONE (16:30)
[2017-04-07] MEDS ORDERED: ONDANSETRON HCL 4 MG/2 ML VIAL IV ONE (16:30)
[2017-04-07 17:26] LABS: Basophils # (auto) 0 uL; Eosinophils # (auto) 0.1 uL; Hemoglobin 10.8 g/dL (12.2-16.2); Monocytes # (auto) 0.5 uL; Nucleated Red Blood Cells % 0.1 %
[2017-04-07 17:28] LABS: Basophils % (auto) 0.4 % (0.0-2.0); Eosinophils % (auto) 1.6 % (0.0-7.0); Hematocrit 33.6 % (36.0-46.0); Lymphocytes # (auto) 1.7 uL; Lymphocytes % (auto) 17.8 % (10.0-50.0); Mean Corpuscular Hgb Conc. 32.1 g/dL (32.0-36.0); Mean Corpuscular Volume 71.6 fL (80.0-100.0); Monocytes % (auto) 5.7 % (0.0-12.0); Neutrophils % (auto) 74.5 % (37.0-80.0); Platelet Count (auto) 353 10^3/uL (140-450); Red Cell Distribution Width 18.7 % (11.8-14.3); White Blood Cell 9.4 10^3/uL (4.4-10.8)
[2017-04-07] MEDS ORDERED: FUROSEMIDE 40 MG/4 ML VIAL IV ONE (17:30)
[2017-04-07 17:45] LABS: Albumin 2.9 g/dL (3.4-5.0); Alkaline Phosphatase 108 U/L (45-117); Anion Gap 9 (5-15); Aspartate Aminotransferase 7 U/L (15-37); BUN/Creatinine Ratio 21.4; Bilirubin, Total 0.4 mg/dL (0.2-1.0); Blood Urea Nitrogen 9 mg/dL (7-18); Calcium 8.3 mg/dL (8.5-10.1); Carbon Dioxide 28 mmol/L (21-32); Chloride 100 mmol/L (98-107); GFR African American 201 mL/min; GFR Non-African American 166 mL/min; Glucose 92 mg/dL (74-106); Magnesium 2.1 mg/dL (1.6-2.6); Potassium 3.7 mmol/L (3.5-5.1); Sodium 137 mmol/L (136-145)
[2017-04-07 17:48] LABS: B-Type Natriuretic Peptide 35.07 pg/mL (0-100); Temperature: 22.4 C (20.0-25.0)
[2017-04-07] MEDS ORDERED: ALBUTEROL SULF 2.5 MG/0.5ML(0.5%) NEB SOLN NEB PRN (18:00)
[2017-04-07] MEDS ORDERED: LACTULOSE 20Gm/30ML SOLN PO PRN (18:00)
[2017-04-07] MEDS ORDERED: TEMAZEPAM 15 MG CAP PO PRN (18:00)
[2017-04-07] MEDS: ALBUTEROL SULF 2.5 MG/0.5ML(0.5%) NEB SOLN NEB SCH (18:00)
[2017-04-07] MEDS ORDERED: PROMETHAZINE HCL 25 MG/ML 1ML IV PRN (18:00)
[2017-04-07] MEDS ORDERED: BACLOFEN 10 MG TAB PO PRN (18:00)
[2017-04-07] MEDS ORDERED: LORazepam 0.5 MG TAB PO PRN (18:00)
[2017-04-07] MEDS ORDERED: NITROGLYCERIN 0.4 MG SL TAB SL PRN (18:00)
[2017-04-07] MEDS ORDERED: MORPHINE SULF INJ 2 MG/ML SYRINGE 1ML IV PRN ×2 (18:00)
[2017-04-07] MEDS ORDERED: ACETAMINOPHEN 500 MG TAB PO PRN (18:00)
[2017-04-07] MEDS ORDERED: ASPirin 81 mg TAB PO ONE (18:45)
[2017-04-07] MEDS ORDERED: ENOXAPARIN SOD 40 MG/0.4 ML SYRINGE SC SCH (20:00)
[2017-04-07] MEDS: HYDROmorphone HCL 2 MG/ML VL IV PRN (21:27)
[2017-04-07] MEDS ORDERED: GABAPENTIN 300 MG CAP PO SCH (22:00)
[2017-04-07] MEDS: BUDESONIDE (INHALATION) 0.5 MG/2 ML NEB NEB SCH (22:00)
[2017-04-07] MEDS: MORPHINE SULF 30 mg ER tab PO SCH (22:41)
[2017-04-08] VITALS (8 sets, daily range): BP systolic 81–133; BP diastolic 48–98
[2017-04-08] MEDS: HYDROmorphone HCL 2 MG/ML VL IV PRN ×2 (01:54→05:55)
[2017-04-08] MEDS: IPRATROPIUM BROM 0.5 MG/2.5ML INH SOL NEB SCH ×4 (06:08→18:04)
[2017-04-08] MEDS: ALBUTEROL SULF 2.5 MG/0.5ML(0.5%) NEB SOLN NEB SCH ×4 (06:08→18:04)
[2017-04-08] MEDS: BUDESONIDE (INHALATION) 0.5 MG/2 ML NEB NEB SCH ×2 (06:09→18:04)
[2017-04-08 06:11] LABS: Basophils # (auto) 0 uL; Lymphocytes # (auto) 1.7 uL; Monocytes # (auto) 0.6 uL; Nucleated Red Blood Cells % 0.1 %; White Blood Cell 7.5 10^3/uL (4.4-10.8)
[2017-04-08 06:14] LABS: Basophils % (auto) 0.3 % (0.0-2.0); Eosinophils # (auto) 0.1 uL; Lymphocytes % (auto) 22.6 % (10.0-50.0); Mean Corpuscular Hgb Conc. 31.8 g/dL (32.0-36.0); Mean Corpuscular Volume 72.3 fL (80.0-100.0); Mean Platelet Volume 7.2 fL (6.9-10.8); Monocytes % (auto) 7.8 % (0.0-12.0); Neutrophils % (auto) 67.3 % (37.0-80.0); Platelet Count (auto) 349 10^3/uL (140-450); Red Cell Distribution Width 18.6 % (11.8-14.3)
[2017-04-08 06:16] LABS: Hematocrit 31.6 % (36.0-46.0)
[2017-04-08 06:48] LABS: Albumin 2.4 g/dL (3.4-5.0); BUN/Creatinine Ratio 21.4; Bilirubin, Total 0.5 mg/dL (0.2-1.0); Potassium 4.4 mmol/L (3.5-5.1); Total Protein 6.8 g/dL (6.4-8.2)
[2017-04-08] MEDS: MORPHINE SULF 30 mg ER tab PO SCH (10:00)
[2017-04-08] MEDS ORDERED: clonazePAM 0.5 MG TAB PO SCH (10:00)
[2017-04-08] MEDS ORDERED: PANTOPRAZOLE 40 MG TAB PO SCH (10:00)
[2017-04-08] MEDS ORDERED: ENALAPRIL MALEATE 2.5 MG TAB PO SCH (10:00)
[2017-04-08] MEDS ORDERED: SERTRALINE HCL 50 MG TAB PO SCH (10:00)
[2017-04-08] MEDS ORDERED: LEVOFLOXACIN 500MG 100 ML IV SCH (10:00)
[2017-04-08] MEDS ORDERED: POTASSIUM CHL 20 Meq TABLET PO SCH (10:00)
[2017-04-08] MEDS ORDERED: ASPirin 81 mg TAB PO SCH (10:00)
[2017-04-08] MEDS ORDERED: FUROSEMIDE 40 MG/4 ML VIAL IV SCH (10:00)
[2017-04-08] MEDS ORDERED: SODIUM CHLORIDE 0.9% 250 ML IV ONE (11:00)
[2017-04-08] MEDS ORDERED: HYDROmorphone HCL 2 MG/ML VL IV PRN (11:00)
[2017-04-08] MEDS ORDERED: LEVO500T21 PO (12:55)
[2017-04-08] MEDS ORDERED: DEXTLIQ70 PO (12:55)
== END 2017-04-08 23:20 | disposition home health service (06) | DRG 140 ==
LOC: EDBD 16:03 → ER 16:03 → TELE 16:04 → TELE-EAST 22:00 → EAST 04-08 22:40
PROVIDERS: ADMIT Internal Medicine; ATTEND Internal Medicine
DX: J44.1 Chronic obstructive pulmonary disease with (acute) exacerbation (principal); L89.152 Pressure ulcer of sacral region, stage 2; I11.0 Hypertensive heart disease with heart failure; G82.20 Paraplegia, unspecified; E11.42 Type 2 diabetes mellitus with diabetic polyneuropathy; I27.20 Pulmonary hypertension, unspecified; F11.20 Opioid dependence, uncomplicated; I50.9 Heart failure, unspecified; J44.0 Chronic obstructive pulmonary disease with (acute) lower respiratory infection; K59.00 Constipation, unspecified; G89.4 Chronic pain syndrome; F12.90 Cannabis use, unspecified, uncomplicated; L89.92 Pressure ulcer of unspecified site, stage 2; F41.9 Anxiety disorder, unspecified; J20.9 Acute bronchitis, unspecified; F17.210 Nicotine dependence, cigarettes, uncomplicated; F32.9 Major depressive disorder, single episode, unspecified; Z93.3 Colostomy status; Z83.3 Family history of diabetes mellitus; Z82.62 Family history of osteoporosis; Z82.49 Family history of ischemic heart disease and other diseases of the circulatory system; Z82.5 Family history of asthma and other chronic lower respiratory diseases; Z82.0 Family history of epilepsy and other diseases of the nervous system; Z81.8 Family history of other mental and behavioral disorders; Z82.3 Family history of stroke; Z80.1 Family history of malignant neoplasm of trachea, bronchus and lung; Z80.3 Family history of malignant neoplasm of breast; Z80.41 Family history of malignant neoplasm of ovary; Z80.8 Family history of malignant neoplasm of other organs or systems; Z90.49 Acquired absence of other specified parts of digestive tract; Z90.89 Acquired absence of other organs; Z84.1 Family history of disorders of kidney and ureter; Z80.42 Family history of malignant neoplasm of prostate; Z83.49 Family history of other endocrine, nutritional and metabolic diseases; Z88.0 Allergy status to penicillin; Z88.6 Allergy status to analgesic agent; Z79.899 Other long term (current) drug therapy
CPT/HCPCS: 36415; 71010; 80053; 80061; 82550; 83605; 83735; 83880; 84443; 84484; 85025; 87040; 87081; 93005; 94640; 94761; 96361; 96365; 96372; 96375; J1956; J2405

== ENCOUNTER 2017-04-12 03:56 | Emergency (ER) | payer MEDICAID ==
[~2017-04-12] VITALS: Ht 170.2 cm; Wt 75.7 kg
[~2017-04-12 03:56] MED LIST changes: +DEXTLIQ70 PO; +LEVO500T21 PO
[2017-04-12] MEDS ORDERED: PROMETHAZINE HCL 25 MG/ML 1ML IV ONE (04:00)
[2017-04-12] MEDS ORDERED: LORazepam 2MG/ML-1ML VIAL IV ONE (04:00)
[2017-04-12] MEDS ORDERED: HYDROmorphone HCL 2 MG/ML VL IV ONE (04:00)
[2017-04-12] MEDS ORDERED: diphenhdrAMINE HCL 50 MG/1 ML VL IV ONE (04:15)
[2017-04-12] MEDS ORDERED: SODIUM CHLORIDE 0.9% 500 ML IV ONE (04:15)
[2017-04-12 05:01] LABS: Eosinophils # (auto) 0.2 uL; Eosinophils % (auto) 2.3 % (0.0-7.0); Mean Corpuscular Hgb Conc. 31.8 g/dL (32.0-36.0); Mean Platelet Volume 7.4 fL (6.9-10.8); Monocytes # (auto) 0.6 uL; Nucleated Red Blood Cells % 0.1 %; Red Cell Distribution Width 18.6 % (11.8-14.3)
[2017-04-12 05:07] LABS: Basophils # (auto) 0.1 uL; Basophils % (auto) 0.5 % (0.0-2.0); Hematocrit 34.7 % (36.0-46.0); Lymphocytes # (auto) 2.3 uL; Mean Corpuscular Hemoglobin 22.8 pg (28.0-32.0); Mean Corpuscular Volume 71.7 fL (80.0-100.0); Monocytes % (auto) 5.6 % (0.0-12.0); Neutrophils # (auto) 6.7 uL; Neutrophils % (auto) 68.6 % (37.0-80.0); Platelet Count (auto) 389 10^3/uL (140-450); White Blood Cell 9.8 10^3/uL (4.4-10.8)
[2017-04-12 05:24] LABS: Albumin 2.6 g/dL (3.4-5.0); Potassium 3.3 mmol/L (3.5-5.1)
[2017-04-12 05:29] VITALS: BP 158/89
[2017-04-12 05:29] LABS: Bilirubin, Total 0.3 mg/dL (0.2-1.0); Total Protein 7.7 g/dL (6.4-8.2)
[2017-04-12] MEDS ORDERED: HYDROcodone-ACET 5/325MG TAB PO ONE ×2 (09:15→15:00)
== END 2017-04-12 16:57 | disposition home or self-care (01) ==
LOC: EDBD 03:56 → ER 03:58
DX: J45.901 Unspecified asthma with (acute) exacerbation (principal); J06.9 Acute upper respiratory infection, unspecified; I11.0 Hypertensive heart disease with heart failure; I50.9 Heart failure, unspecified; E78.5 Hyperlipidemia, unspecified; Z87.440 Personal history of urinary (tract) infections; Z90.49 Acquired absence of other specified parts of digestive tract; Z90.710 Acquired absence of both cervix and uterus; F17.210 Nicotine dependence, cigarettes, uncomplicated
CPT/HCPCS: 36415; 71010; 80053; 85025; 96361; 96374; 96375; 99285; J1170; J1200; J2060; J2550; J7040